=== PATIENT | male | born 1995 | race Caucasian/White ===

== ENCOUNTER 2018-06-25 10:54 | Emergency (ER) | payer OTHER ==
[~2018-06-25] VITALS: Ht 175.3 cm; Wt 83.2 kg
[2018-06-25 11:05] VITALS: BP 161/90; PULSE 83; TEMP 98.4
[2018-06-25] MEDS ORDERED: BACTRIM DS 8001 TAB PO (11:54)
[2018-06-25] MEDS ORDERED: CEPHALEXIN500 M1 PO (11:54)
== END 2018-06-25 12:18 | disposition home or self-care (01) ==
LOC: COL.ER 10:54
DX: R21 Rash and other nonspecific skin eruption (principal); F17.210 Nicotine dependence, cigarettes, uncomplicated